=== PATIENT | male | born 1955 | race Caucasian/White ===

== ENCOUNTER 2023-08-21 19:07 | Emergency (ER) | payer MEDICAID ==
[~2023-08-21] VITALS: Ht 160 cm; Wt 97.5 kg
[2023-08-21 19:08] VITALS: BP 100/66; PULSE 115; RESP 18; TEMP 97.6; O2SAT 96
[2023-08-21 19:50] VITALS: BP 121/74; RESP 22; O2SAT 95
[2023-08-21 20:34] VITALS: PULSE 108
[2023-08-21] MEDS: NACL 0.9% 1,000 ML IV SCH (20:35)
[2023-08-21 20:55] VITALS: O2SAT 95
[2023-08-21 21:36] LABS: BASOPHILS # (AUTO) 0.1 K/uL (0.00-0.22); BASOPHILS % (AUTO) 0.6 % (0.0-2.0); EOSINOPHILS # (AUTO) 0.1 K/uL (0-0.4); EOSINOPHILS % (AUTO) 0.9 % (0.0-4.0); HEMOGLOBIN 12.7 g/dL (12.0-18.0); LYMPHOCYTES # (AUTO) 2.7 K/uL (2.0-11.5); LYMPHOCYTES % (AUTO) 20.4 % (20.5-51.1); MEAN CORPUSCULAR HEMOGLOBIN 32 pg (27-31); MEAN CORPUSCULAR HGB CONC 34 g/dL (33-37); MEAN CORPUSCULAR VOLUME 95.7 fL (80-94); MONOCYTES % (AUTO) 7.4 % (1.7-9.3); NEUTROPHILS # (AUTO) 9.4 K/uL (1.8-7.7); NEUTROPHILS % (AUTO) 70.7 % (42.2-75.2); PLATELET COUNT (AUTO) 238 K/uL (140-450); RED BLOOD CELL COUNT(AUTO) 3.97 MIL/uL (4.20-6.10); RED CELL DISTRIBUTION WIDTH 14.6 % (11.6-13.7); WHITE BLOOD COUNT (AUTO) 13.3 K/uL (4.8-10.8)
[2023-08-21 22:09] LABS: ALANINE AMINOTRANSFERASE 51 U/L (12-78); ALBUMIN 3.2 g/dL (3.4-5.0); ALKALINE PHOSPHATASE 121 U/L (50-136); ASPARTATE AMINOTRANSFERASE 35 U/L (15-37); BILIRUBIN,DIRECT 0.1 mg/dL (0.0-0.3); CREATINE KINASE, TOTAL 173 U/L (39-308); FREE T4 (FREE THYROXINE) 0.68 ng/dL (0.76-1.46); LIPASE 28 U/L (16-77); THYROID STIMULATING HORMONE 38.57 uIU/mL (0.34-3.74); TOTAL BILIRUBIN 0.5 mg/dL (0.0-1.0); TOTAL PROTEIN, SERUM 7.8 g/dL (6.4-8.2)
[2023-08-21 22:20] LABS: INR 0.93 (0.8-1.2); PARTIAL THROMBOPLASTIN TIME 28.4 secs (22-35.6); PROTHROMBIN TIME 9.8 secs (10.8-13.4)
[2023-08-21 22:29] LABS: LACTIC ACID 2.2 mmol/L (0.4-2.0)
[2023-08-21 22:32] LABS: ANION GAP 8.3 (8-16); CARBON DIOXIDE 29.5 mmol/L (21-32); POTASSIUM 3.8 mmol/L (3.5-5.1)
[2023-08-21 22:33] LABS: CALCIUM 8.7 mg/dL (8.5-10.1); CREATININE 0.8 mg/dL (0.6-1.3)
[2023-08-21 22:33] LABS: APPEARANCE,URINE CLEAR (CLEAR); BILIRUBIN,URINE NEGATIVE (NEGATIVE); BLOOD, URINE TRACE-I (NEGATIVE); COLOR,URINE YELLOW (YELLOW); LEUKOCYTE ESTERASE ,URINE NEGATIVE (NEGATIVE); NITRITE, URINE NEGATIVE (NEGATIVE); PROTEIN,URINE NEGATIVE (NEGATIVE); UGLUCOSE 3+ (NEGATIVE); UROBILINOGEN,URINE 0.2 EU/dL (0.2 - 1)
[2023-08-21 22:38] LABS: BACTERIA,URINE FEW /HPF (None Seen); WBC,URINE 0-5 /HPF (0-5)
[2023-08-21 22:39] LABS: SQUAMOUS EPITHELIAL CELL,UR 0-3 (FEW) /LPF (0-3 (FEW))
[2023-08-22] MEDS ORDERED: IBUP-1842 PO (00:17)
[2023-08-22] MEDS ORDERED: ACET-10509 PO (00:17)
[2023-08-22] MEDS ORDERED: LID5T TP (00:17)
== END 2023-08-22 00:31 | disposition home or self-care (01) ==
LOC: MED 19:07
DX: S22.20XA Unspecified fracture of sternum, initial encounter for closed fracture (principal); S40.022A Contusion of left upper arm, initial encounter; R07.89 Other chest pain; E87.20 Acidosis, unspecified; E11.65 Type 2 diabetes mellitus with hyperglycemia; R00.0 Tachycardia, unspecified; I10 Essential (primary) hypertension; E78.5 Hyperlipidemia, unspecified; E03.9 Hypothyroidism, unspecified; X58.XXXA Exposure to other specified factors, initial encounter; Y92.89 Other specified places as the place of occurrence of the external cause; Y93.89 Activity, other specified; Y99.8 Other external cause status
CPT/HCPCS: 36415; 71045; 71250; 80048; 80076; 81001; 82550; 83605; 83690; 84439; 84443; 84484; 85025; 85610; 85730; 87040; 87086; 93005; 93971; 96360; 99285; J7030; Q0092